=== PATIENT | male | born 1980 | race Caucasian/White ===

== ENCOUNTER 2018-07-11 19:30 | Outpatient (CLI) | payer BC | END 2018-07-11 19:31 | disposition home or self-care (01) | LOC: SLEEPLAB 19:30 | PROVIDERS: ATTEND Family Medicine | DX: G47.33 Obstructive sleep apnea (adult) (pediatric) (principal); R53.83 Other fatigue; R51 Headache; E66.9 Obesity, unspecified; K21.9 Gastro-esophageal reflux disease without esophagitis; R06.83 Snoring; R35.1 Nocturia | CPT/HCPCS: 95811 ==

== ENCOUNTER 2019-02-21 07:16 | Outpatient (CLI) | payer BC ==
--- NOTE | 2019-02-21 08:33 | CT ---
CT OF THE ABDOMEN WITH IV CONTRAST INDICATION: Persistent abdominal pain after food poisoning from the COMPARISON: Noncontrast CT the abdomen and pelvis dated July 20, 2013 FINDINGS: ABDOMEN: Lung bases: Mild subsegmental volume loss Liver: No focal lesion. Gallbladder: Normal appearing. Pancreas: Normal. Adrenal glands: Normal. Spleen: Normal. Kidneys and ureters: There is a tiny subcentimeter hypodensity within the right mid kidney. This is s tatistically likely reflective of a cyst. This was likely present in retrospect to the comparison CT the abdomen and pelvis without contrast in July 2013. Bowel: The visualized small and large bowel are normal caliber. Vasculature: Normal. Lymph nodes:No lymphadenopathy. Free fluid in abdomen:No free fluid is evident. 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 There is scattered degenerative and osteoarthritic changes. Soft tissues:Normal. IMPRESSION: 1. No acute abnormality demonstrated.
== END 2019-02-21 07:17 | disposition home or self-care (01) ==
LOC: CT 07:16
PROVIDERS: ATTEND Family Medicine
DX: R10.9 Unspecified abdominal pain (principal); R11.0 Nausea; R79.89 Other specified abnormal findings of blood chemistry
CPT/HCPCS: 74160

== ENCOUNTER 2019-03-23 07:13 | Outpatient (CLI) | payer BC ==
--- NOTE | 2019-03-23 10:38 | NM ---
HEPATOBILIARY SCAN: HISTORY:Right upper quadrant pain, elevated liver labs RADIOPHARMACEUTICAL: 5.1 mCi Technetium 99m Mebrofenin injected intravenously FINDINGS: There is normal tracer extraction by the liver with normal excretion into the biliary tracts and smal l bowel loops and normal filling of the gallbladder. The calculated gallbladder ejection fraction following an oral fatty meal measures 40%. IMPRESSION:Normal exam.
== END 2019-03-23 07:14 | disposition home or self-care (01) ==
LOC: NM 07:13
PROVIDERS: ATTEND Family Medicine
DX: R10.9 Unspecified abdominal pain (principal); R11.0 Nausea
CPT/HCPCS: 78227; A9537

== ENCOUNTER 2022-06-24 06:13 | Day surgery (SDC) | payer BC ==
[2022-06-24] MEDS ORDERED: Lidocaine 1% MPF 2 ML VIAL ONE (07:40)
[2022-06-24] MEDS ORDERED: Sodium Chloride 0.9% 100 ML ONE (07:41)
[2022-06-24] MEDS ORDERED: cefOXitin 2 GM VIAL ONE (07:41)
[2022-06-24] MEDS ORDERED: Bupivacaine/Epinephrine 0.25% 30 ML VIAL ONE (08:15)
[2022-06-24] MEDS ORDERED: Iopamidol 30 ML ONE (08:15)
[2022-06-24] MEDS ORDERED: SUGAMMADEX SODIUM 200 MG/2 ML VIAL ONE (08:17)
[2022-06-24] MEDS ORDERED: Dexmedetomidine 200 MCG/2 ML VIAL ONE (08:17)
[2022-06-24] MEDS ORDERED: fentaNYL 50 mcg/mL 1 mL Vial ONE ×2 (08:17→09:55)
[2022-06-24] MEDS ORDERED: Ketorolac Tromethamine 30 MG/ML VIAL ONE (08:38)
[2022-06-24] MEDS ORDERED: GLYCOPYRROLATE/PF 0.2 MG/ML VIAL ONE (08:38)
[2022-06-24] MEDS ORDERED: Dexamethasone 20 MG/5 ML VIAL ONE (08:38)
[2022-06-24] MEDS ORDERED: PROPOFOL 200 MG/20 ML VIAL ONE (08:38)
[2022-06-24] MEDS ORDERED: Rocuronium Bromide 10 MG/ML (10ML VIAL) ONE (08:38)
[2022-06-24] MEDS ORDERED: NEOSTIGMINE 3 MG/3 ML SYR 3 MG/3 ML SYRINGE ONE (08:38)
[2022-06-24] MEDS ORDERED: Lidocaine 1% PF 5 ML VIAL ONE (08:38)
[2022-06-24] MEDS ORDERED: Ondansetron PF 4 MG/2 ML Vial ONE (08:38)
[2022-06-24] MEDS ORDERED: Promethazine HCl 25 MG/ML VIAL ONE (09:55)
[2022-06-24] MEDS ORDERED: HYDROcodone/Acetaminophen 5/325 mg Tablet ONE (11:29)
== END 2022-06-24 12:20 | disposition home or self-care (01) ==
LOC: SDC 06:13
PROVIDERS: ATTEND Surgery
PROC: 0FT44ZZ Resection of Gallbladder, Percutaneous Endoscopic Approach (ICD-10-PCS; principal; 2022-06-24)
PROC: 0FB04ZX Excision of Liver, Percutaneous Endoscopic Approach, Diagnostic (ICD-10-PCS; principal; 2022-06-24)
PROC: BF101ZZ Fluoroscopy of Bile Ducts using Low Osmolar Contrast (ICD-10-PCS; principal; 2022-06-24)
DX: K80.10 Calculus of gallbladder with chronic cholecystitis without obstruction (principal); R79.89 Other specified abnormal findings of blood chemistry; I10 Essential (primary) hypertension; G47.33 Obstructive sleep apnea (adult) (pediatric); K21.9 Gastro-esophageal reflux disease without esophagitis; E66.01 Morbid (severe) obesity due to excess calories; Z68.39 Body mass index [BMI] 39.0-39.9, adult
CPT/HCPCS: 47532; 88304; 88307; 88313; C1889; J0694; J1100; J1885; J2405; J2550; J2704; J3010; J3490; Q9967